=== PATIENT | male | born 1935 | race African-American/Black ===

== ENCOUNTER 2023-06-14 21:48 | Inpatient (IN) | payer OTHER ==
[2023-06-14 22:16] VITALS: BMI 17.7
[2023-06-14] MEDS ORDERED: FUROSEMIDE 40 MG/4 ML INJECTABLE VIAL IVPUSH ONE (23:03)
[2023-06-14] MEDS ORDERED: FUROSEMIDE 40 MG/4 ML INJECTABLE VIAL ONE (23:11)
[2023-06-14 23:50] LABS: BASO % 1.5 % (0-2.0); EOS % 3.1 % (0-4.5); HEMATOCRIT 37.5 % (35.4-49); HEMOGLOBIN 12.5 GM/dL (11.7-16.9); LYMPH % 15.4 % (8-40); MCH 29.7 pg (25.7-33.7); MCHC 33.3 g/dl (32.0-35.9); MEAN CELL VOLUME 88.9 fl (80-96); MEAN PLT VOLUME 8.4 fl (7.5-11.1); PLATELET COUNT 249 10^3/uL (134-434); RBC 4.22 M/mm3 (4.00-5.60); RDW 16.5 % (11.9-15.9); WHITE BLOOD COUNT 8.2 K/mm3 (4.0-10.0)
[2023-06-15 00:08] LABS: POTASSIUM 5.3 mmol/L (3.5-5.1)
[2023-06-15 00:10] LABS: ALBUMIN 3.1 g/dl (3.4-5.0); BLOOD UREA NITROGEN 57.4 mg/dL (7-18); CALCIUM 9.3 mg/dL (8.5-10.1)
[2023-06-15 00:15] LABS: BILIRUBIN,TOTAL 0.7 mg/dL (0.2-1); TOT PROT 6.7 g/dl (6.4-8.2)
[2023-06-15 00:36] LABS: N-TERMINAL BNP 103258.2 pg/ml (5-450)
[2023-06-15 01:29] LABS: EPI CELLS 23 /uL (0-25.1); HYALINE CASTS 6 /uL (0-3.1); URINE APPEARANCE CLEAR; URINE BACTERIA 4 /uL (0-1359); URINE BILIRUBIN NEGATIVE (NEGATIVE); URINE COLOR YELLOW; URINE GLUCOSE (UA) NEGATIVE (NEGATIVE); URINE KETONE NEGATIVE (NEGATIVE); URINE LEUK ESTERASE TRACE (NEGATIVE); URINE NITRITE NEGATIVE (NEGATIVE); URINE PROTEIN 2+ (NEGATIVE); URINE RBC 19 /uL (0-23.9); URINE UROBILINOGEN 0.2 mg/dL (0.2-1.0); URINE WBC 64 /uL (0-25.8)
[2023-06-15 06:37] LABS: EPI CELLS 21 /uL (0-25.1); HYALINE CASTS 7 /uL (0-3.1); URINE APPEARANCE CLEAR; URINE BACTERIA 4 /uL (0-1359); URINE BILIRUBIN NEGATIVE (NEGATIVE); URINE COLOR YELLOW; URINE GLUCOSE (UA) NEGATIVE (NEGATIVE); URINE KETONE NEGATIVE (NEGATIVE); URINE LEUK ESTERASE TRACE (NEGATIVE); URINE NITRITE NEGATIVE (NEGATIVE); URINE PROTEIN 2+ (NEGATIVE); URINE RBC 22 /uL (0-23.9); URINE UROBILINOGEN 0.2 mg/dL (0.2-1.0); URINE WBC 59 /uL (0-25.8)
[2023-06-15] MEDS: INSULIN SLIDING SCALE (NOVOLOG) 1 VIAL SQ SCH ×4 (09:39→22:41)
[2023-06-15] MEDS: APIXABAN 2.5 MG TABLET PO SCH ×2 (10:32→22:42)
[2023-06-15] MEDS: TAMSULOSIN HCL 0.4 MG CAP PO SCH (10:32)
[2023-06-15] MEDS: FUROSEMIDE 40 MG/4 ML INJECTABLE VIAL IVPUSH SCH (10:32)
[2023-06-15] MEDS ORDERED: TAMSULOSIN HCL 0.4 MG CAP ONE (10:41)
[2023-06-15] MEDS ORDERED: APIXABAN 2.5 MG TABLET ONE (10:41)
[2023-06-15] MEDS ORDERED: FUROSEMIDE 40 MG/4 ML INJECTABLE VIAL ONE ×2 (10:41→16:45)
[2023-06-15 13:46] LABS: MCHC 32.5 g/dl (32.0-35.9)
[2023-06-15 13:49] LABS: BASO % 1.2 % (0-2.0); EOS % 2.1 % (0-4.5); HEMATOCRIT 37.9 % (35.4-49); HEMOGLOBIN 12.3 GM/dL (11.7-16.9); LYMPH % 14.1 % (8-40); MCH 29.8 pg (25.7-33.7); MEAN CELL VOLUME 91.6 fl (80-96); MEAN PLT VOLUME 8.7 fl (7.5-11.1); MONO % 7.3 % (3.8-10.2); NEUT % 75.3 % (42.8-82.8); PLATELET COUNT 224 10^3/uL (134-434); RBC 4.14 M/mm3 (4.00-5.60); WHITE BLOOD COUNT 9.3 K/mm3 (4.0-10.0)
[2023-06-15 14:13] LABS: POTASSIUM 5.4 mmol/L (3.5-5.1)
[2023-06-15 14:17] LABS: CALCIUM 9.5 mg/dL (8.5-10.1)
[2023-06-15 14:18] LABS: ALBUMIN 3.2 g/dl (3.4-5.0); BLOOD UREA NITROGEN 59.4 mg/dL (7-18); MAGNESIUM 2.7 mg/dL (1.8-2.4)
[2023-06-15 14:21] LABS: PHOSPHOROUS 4.4 mg/dL (2.5-4.9)
[2023-06-15 14:22] LABS: BILIRUBIN,TOTAL 0.9 mg/dL (0.2-1); CREATININE 2.1 mg/dL (0.55-1.3); TOT PROT 6.8 g/dl (6.4-8.2)
[2023-06-15] MEDS ORDERED: FUROSEMIDE 40 MG/4 ML INJECTABLE VIAL IVPUSH ONE (16:38)
[2023-06-15] MEDS ORDERED: SODIUM ZIRCONIUM CYCLOSILICATE (LOKELMA) 10 GM PACKET ONE (16:45)
[2023-06-15] MEDS ORDERED: SODIUM ZIRCONIUM CYCLOSILICATE (LOKELMA) 10 GM PACKET PO SCH (16:45)
[2023-06-15] MEDS: ATORVASTATIN CA 10 MG TABLET (FP) PO SCH (22:41)
[2023-06-16] MEDS: INSULIN SLIDING SCALE (NOVOLOG) 1 VIAL SQ SCH ×4 (06:09→22:45)
[2023-06-16 07:35] LABS: BASO % 0.8 % (0-2.0); EOS % 5.9 % (0-4.5); HEMATOCRIT 32.5 % (35.4-49); LYMPH % 11.1 % (8-40); MCHC 33.7 g/dl (32.0-35.9); MEAN PLT VOLUME 8.8 fl (7.5-11.1); MONO % 6.7 % (3.8-10.2); NEUT % 75.5 % (42.8-82.8); PLATELET COUNT 200 10^3/uL (134-434); RBC 3.65 M/mm3 (4.00-5.60); RDW 16.6 % (11.9-15.9); WHITE BLOOD COUNT 8.4 K/mm3 (4.0-10.0)
[2023-06-16 07:46] LABS: POTASSIUM 4.2 mmol/L (3.5-5.1)
[2023-06-16 07:52] LABS: BLOOD UREA NITROGEN 65.4 mg/dL (7-18)
[2023-06-16 07:55] LABS: BILIRUBIN,TOTAL 0.8 mg/dL (0.2-1); TOT PROT 6.4 g/dl (6.4-8.2)
[2023-06-16] MEDS: APIXABAN 2.5 MG TABLET PO SCH ×2 (09:36→22:29)
[2023-06-16] MEDS: FUROSEMIDE 40 MG/4 ML INJECTABLE VIAL IVPUSH SCH (09:36)
[2023-06-16] MEDS: TAMSULOSIN HCL 0.4 MG CAP PO SCH (09:36)
[2023-06-16] MEDS ORDERED: INSULIN (NOVOLOG) ASPART 100 UNITS/ML 10ML VIAL ONE (11:38)
[2023-06-16] MEDS: ATORVASTATIN CA 10 MG TABLET (FP) PO SCH (22:29)
[2023-06-17] MEDS: INSULIN SLIDING SCALE (NOVOLOG) 1 VIAL SQ SCH ×4 (06:40→21:21)
[2023-06-17] MEDS: TAMSULOSIN HCL 0.4 MG CAP PO SCH (08:18)
[2023-06-17] MEDS: APIXABAN 2.5 MG TABLET PO SCH ×2 (09:32→21:22)
[2023-06-17] MEDS: FUROSEMIDE 40 MG/4 ML INJECTABLE VIAL IVPUSH SCH (09:32)
[2023-06-17] MEDS: ATORVASTATIN CA 10 MG TABLET (FP) PO SCH (21:22)
[2023-06-18] MEDS: INSULIN SLIDING SCALE (NOVOLOG) 1 VIAL SQ SCH ×4 (06:27→21:19)
[2023-06-18 07:36] LABS: EOS % 5.9 % (0-4.5); HEMATOCRIT 30.8 % (35.4-49); HEMOGLOBIN 10.6 GM/dL (11.7-16.9); LYMPH % 12.8 % (8-40); MCH 30.4 pg (25.7-33.7); MCHC 34.4 g/dl (32.0-35.9); MEAN CELL VOLUME 88.5 fl (80-96); MEAN PLT VOLUME 8.8 fl (7.5-11.1); MONO % 9.1 % (3.8-10.2); NEUT % 71.2 % (42.8-82.8); PLATELET COUNT 182 10^3/uL (134-434); RBC 3.49 M/mm3 (4.00-5.60); RDW 16.6 % (11.9-15.9); WHITE BLOOD COUNT 9.2 K/mm3 (4.0-10.0)
[2023-06-18 07:55] LABS: POTASSIUM 3.7 mmol/L (3.5-5.1)
[2023-06-18 07:57] LABS: BLOOD UREA NITROGEN 41.2 mg/dL (7-18)
[2023-06-18 07:58] LABS: ALBUMIN 2.5 g/dl (3.4-5.0)
[2023-06-18 08:01] LABS: CREATININE 1.4 mg/dL (0.55-1.3)
[2023-06-18 08:02] LABS: BILIRUBIN,TOTAL 0.7 mg/dL (0.2-1); TOT PROT 5.4 g/dl (6.4-8.2)
[2023-06-18] MEDS: FUROSEMIDE 40 MG/4 ML INJECTABLE VIAL IVPUSH SCH (09:36)
[2023-06-18] MEDS: TAMSULOSIN HCL 0.4 MG CAP PO SCH (09:36)
[2023-06-18] MEDS: APIXABAN 2.5 MG TABLET PO SCH ×2 (09:36→21:17)
[2023-06-18] MEDS: metoPROLOL SUCCINATE 25 MG TAB.SR.24H (FP) PO SCH (09:38)
[2023-06-18] MEDS: ATORVASTATIN CA 10 MG TABLET (FP) PO SCH (21:16)
[2023-06-19] MEDS: INSULIN SLIDING SCALE (NOVOLOG) 1 VIAL SQ SCH ×4 (06:38→21:23)
[2023-06-19 07:26] LABS: BASO % 1.1 % (0-2.0); EOS % 5.4 % (0-4.5); HEMOGLOBIN 11.4 GM/dL (11.7-16.9); LYMPH % 13.8 % (8-40); MCH 29.9 pg (25.7-33.7); MCHC 33.6 g/dl (32.0-35.9); MEAN CELL VOLUME 88.9 fl (80-96); MEAN PLT VOLUME 9.1 fl (7.5-11.1); MONO % 8.7 % (3.8-10.2); PLATELET COUNT 193 10^3/uL (134-434); RBC 3.82 M/mm3 (4.00-5.60); RDW 16.9 % (11.9-15.9); WHITE BLOOD COUNT 9.2 K/mm3 (4.0-10.0)
[2023-06-19 07:46] LABS: POTASSIUM 3.8 mmol/L (3.5-5.1)
[2023-06-19 07:52] LABS: CALCIUM 8.3 mg/dL (8.5-10.1)
[2023-06-19 07:53] LABS: ALBUMIN 2.7 g/dl (3.4-5.0); BLOOD UREA NITROGEN 39.2 mg/dL (7-18)
[2023-06-19 07:56] LABS: CREATININE 1.2 mg/dL (0.55-1.3)
[2023-06-19 07:58] LABS: BILIRUBIN,TOTAL 0.8 mg/dL (0.2-1); TOT PROT 5.8 g/dl (6.4-8.2)
[2023-06-19] MEDS: metoPROLOL SUCCINATE 25 MG TAB.SR.24H (FP) PO SCH (09:29)
[2023-06-19] MEDS: FUROSEMIDE 40 MG/4 ML INJECTABLE VIAL IVPUSH SCH (09:29)
[2023-06-19] MEDS: APIXABAN 2.5 MG TABLET PO SCH ×2 (09:29→21:23)
[2023-06-19] MEDS: TAMSULOSIN HCL 0.4 MG CAP PO SCH (09:29)
[2023-06-19] MEDS ORDERED: FUROSEMIDE 40 MG/4 ML INJECTABLE VIAL IVPUSH ONE (14:10)
[2023-06-19] MEDS ORDERED: INSULIN (NOVOLOG) ASPART 100 UNITS/ML 10ML VIAL ONE (21:11)
[2023-06-19] MEDS: ATORVASTATIN CA 10 MG TABLET (FP) PO SCH (21:23)
[2023-06-20] MEDS: INSULIN SLIDING SCALE (NOVOLOG) 1 VIAL SQ SCH ×4 (06:31→21:54)
[2023-06-20] MEDS: TAMSULOSIN HCL 0.4 MG CAP PO SCH (08:50)
[2023-06-20] MEDS: APIXABAN 2.5 MG TABLET PO SCH ×2 (09:21→21:46)
[2023-06-20] MEDS: FUROSEMIDE 40 MG/4 ML INJECTABLE VIAL IVPUSH SCH (09:21)
[2023-06-20] MEDS ORDERED: FUROSEMIDE 40 MG/4 ML INJECTABLE VIAL IVPUSH ONE (12:00)
[2023-06-20 13:25] LABS: POTASSIUM 3.6 mmol/L (3.5-5.1)
[2023-06-20 13:28] LABS: BLOOD UREA NITROGEN 38.2 mg/dL (7-18); CALCIUM 8.5 mg/dL (8.5-10.1); MAGNESIUM 1.9 mg/dL (1.8-2.4)
[2023-06-20 13:32] LABS: CREATININE 1.2 mg/dL (0.55-1.3); PHOSPHOROUS 2.4 mg/dL (2.5-4.9)
[2023-06-20] MEDS ORDERED: POTASSIUM PHOSPHATE 15 MM in SODIUM CHLORIDE 250 ML IVPB ONE (13:41)
[2023-06-20] MEDS: ATORVASTATIN CA 10 MG TABLET (FP) PO SCH (21:46)
[2023-06-20] MEDS: SACUBITRIL/VALSARTAN 24 MG-26 MG TABLET PO SCH (21:46)
[2023-06-21] MEDS: INSULIN SLIDING SCALE (NOVOLOG) 1 VIAL SQ SCH ×4 (06:02→22:38)
[2023-06-21] MEDS: TAMSULOSIN HCL 0.4 MG CAP PO SCH (09:14)
[2023-06-21] MEDS: SACUBITRIL/VALSARTAN 24 MG-26 MG TABLET PO SCH ×2 (09:15→22:02)
[2023-06-21] MEDS: APIXABAN 2.5 MG TABLET PO SCH ×2 (09:15→22:02)
[2023-06-21] MEDS: FUROSEMIDE 40 MG/4 ML INJECTABLE VIAL IVPUSH SCH (09:15)
[2023-06-21] MEDS ORDERED: INSULIN (NOVOLOG) ASPART 100 UNITS/ML 10ML VIAL ONE ×2 (11:05→15:49)
[2023-06-21 15:00] VITALS: RESP 18
[2023-06-21] MEDS: ATORVASTATIN CA 10 MG TABLET (FP) PO SCH (22:02)
[2023-06-22] MEDS: INSULIN SLIDING SCALE (NOVOLOG) 1 VIAL SQ SCH ×4 (06:01→22:26)
[2023-06-22] MEDS: APIXABAN 2.5 MG TABLET PO SCH ×2 (09:25→22:18)
[2023-06-22] MEDS: FUROSEMIDE 40 MG/4 ML INJECTABLE VIAL IVPUSH SCH (09:25)
[2023-06-22] MEDS: TAMSULOSIN HCL 0.4 MG CAP PO SCH (09:25)
[2023-06-22] MEDS: SACUBITRIL/VALSARTAN 24 MG-26 MG TABLET PO SCH ×2 (09:25→22:18)
[2023-06-22 10:09] LABS: BASO % 0.9 % (0-2.0); EOS % 4.8 % (0-4.5); HEMATOCRIT 35.4 % (35.4-49); HEMOGLOBIN 11.9 GM/dL (11.7-16.9); LYMPH % 9.1 % (8-40); MCH 30.3 pg (25.7-33.7); MCHC 33.7 g/dl (32.0-35.9); MEAN CELL VOLUME 89.8 fl (80-96); MEAN PLT VOLUME 9.2 fl (7.5-11.1); MONO % 7.9 % (3.8-10.2); NEUT % 77.3 % (42.8-82.8); PLATELET COUNT 185 10^3/uL (134-434); RBC 3.94 M/mm3 (4.00-5.60); WHITE BLOOD COUNT 9.1 K/mm3 (4.0-10.0)
[2023-06-22 10:34] LABS: POTASSIUM 3.8 mmol/L (3.5-5.1)
[2023-06-22 10:36] LABS: BLOOD UREA NITROGEN 49.6 mg/dL (7-18); CALCIUM 8.3 mg/dL (8.5-10.1)
[2023-06-22 10:38] LABS: ALBUMIN 2.6 g/dl (3.4-5.0); MAGNESIUM 1.8 mg/dL (1.8-2.4)
[2023-06-22 10:41] LABS: BILIRUBIN,TOTAL 0.6 mg/dL (0.2-1); CREATININE 1.5 mg/dL (0.55-1.3); PHOSPHOROUS 2.6 mg/dL (2.5-4.9); TOT PROT 5.6 g/dl (6.4-8.2)
[2023-06-22] MEDS: ASPIRIN 81 MG CHEWABLE TABLETS PO SCH (12:07)
[2023-06-22] MEDS: ATORVASTATIN CA 10 MG TABLET (FP) PO SCH (22:18)
[2023-06-23] MEDS: INSULIN SLIDING SCALE (NOVOLOG) 1 VIAL SQ SCH (06:21)
[2023-06-23 06:46] VITALS: BP 117/48; PULSE 69; TEMP 99.2
[2023-06-23] MEDS: FUROSEMIDE 40 MG/4 ML INJECTABLE VIAL IVPUSH SCH (10:29)
[2023-06-23] MEDS: ASPIRIN 81 MG CHEWABLE TABLETS PO SCH (10:29)
[2023-06-23] MEDS: TAMSULOSIN HCL 0.4 MG CAP PO SCH (10:29)
[2023-06-23] MEDS: APIXABAN 2.5 MG TABLET PO SCH (10:30)
[2023-06-23] MEDS: SACUBITRIL/VALSARTAN 24 MG-26 MG TABLET PO SCH (10:30)
== END 2023-06-23 12:21 | disposition home or self-care (01) | DRG 291 ==
LOC: JER 21:48 → JERBED 06-15 00:09 → J4W 06-15 19:32 → J5S 06-21 20:40
PROVIDERS: ADMIT Internal Medicine
DX: I13.0 Hypertensive heart and chronic kidney disease with heart failure and stage 1 through stage 4 chronic kidney disease, or unspecified chronic kidney disease (principal); I50.23 Acute on chronic systolic (congestive) heart failure; J96.01 Acute respiratory failure with hypoxia; N17.9 Acute kidney failure, unspecified; I24.8 Other forms of acute ischemic heart disease; N18.9 Chronic kidney disease, unspecified; I35.0 Nonrheumatic aortic (valve) stenosis; I71.40 Abdominal aortic aneurysm, without rupture, unspecified; I48.91 Unspecified atrial fibrillation; Z79.01 Long term (current) use of anticoagulants; N40.0 Benign prostatic hyperplasia without lower urinary tract symptoms; I27.20 Pulmonary hypertension, unspecified; I48.0 Paroxysmal atrial fibrillation; I71.21 Aneurysm of the ascending aorta, without rupture; N28.1 Cyst of kidney, acquired; E87.6 Hypokalemia
CPT/HCPCS: 36415; 71045-TC-FY; 76775-TC; 76856-TC; 80048; 80053; 81003; 82550; 82570; 82962; 83036; 83735; 83880; 83935; 84100; 84300; 84484; 85025; 85045; 87086; 93005; 93010; 94761; 97116-GP; 99285-25

== ENCOUNTER 2023-07-18 08:49 | Inpatient (IN) | payer OTHER ==
[2023-07-18 10:28] LABS: BASO % 1.3 % (0-2.0); HEMATOCRIT 36.5 % (35.4-49); MCH 29.7 pg (25.7-33.7); MCHC 32.8 g/dl (32.0-35.9); MEAN CELL VOLUME 90.8 fl (80-96); MEAN PLT VOLUME 9.1 fl (7.5-11.1); MONO % 5.5 % (3.8-10.2); NEUT % 76.2 % (42.8-82.8); PLATELET COUNT 247 10^3/uL (134-434); RBC 4.03 M/mm3 (4.00-5.60); RDW 16.7 % (11.9-15.9); WHITE BLOOD COUNT 7.5 K/mm3 (4.0-10.0)
[2023-07-18 10:45] LABS: POTASSIUM 4.7 mmol/L (3.5-5.1)
[2023-07-18 10:48] LABS: ALBUMIN 3.3 g/dl (3.4-5.0); BLOOD UREA NITROGEN 75.9 mg/dL (7-18); CALCIUM 9.1 mg/dL (8.5-10.1); MAGNESIUM 2.5 mg/dL (1.8-2.4)
[2023-07-18 10:51] LABS: CREATININE 2.6 mg/dL (0.55-1.3)
[2023-07-18 10:52] LABS: BILIRUBIN,TOTAL 0.8 mg/dL (0.2-1); TOT PROT 7.3 g/dl (6.4-8.2)
[2023-07-18 12:24] LABS: ACTIVATED PTT 35.9 SECONDS (25.2-36.5); INR 1.04 (0.83-1.09); PROTHROMBIN TIME (PATIENT) 12.1 SEC (9.7-13.0)
[2023-07-18] MEDS ORDERED: APIXABAN 2.5 MG TABLET ONE ×2 (13:49→22:48)
[2023-07-18] MEDS ORDERED: FUROSEMIDE 40 MG TABLET (FP) ONE (13:49)
[2023-07-18] MEDS ORDERED: ASPIRIN 81 MG CHEWABLE TABLETS ONE (13:49)
[2023-07-18] MEDS: APIXABAN 2.5 MG TABLET PO SCH ×2 (13:54→22:53)
[2023-07-18] MEDS: FUROSEMIDE 40 MG TABLET (FP) PO SCH (13:54)
[2023-07-18] MEDS: ASPIRIN 81 MG CHEWABLE TABLETS PO SCH (13:54)
[2023-07-18] MEDS ORDERED: TAMSULOSIN HCL 0.4 MG CAP PO SCH (22:00)
[2023-07-18] MEDS ORDERED: ATORVASTATIN CA 20 MG TABLET (FP) ONE (22:48)
[2023-07-18] MEDS ORDERED: TAMSULOSIN HCL 0.4 MG CAP ONE (22:48)
[2023-07-18] MEDS: ATORVASTATIN CA 10 MG TABLET (FP) PO SCH (22:53)
[2023-07-19] MEDS ORDERED: MELATONIN 5 MG TABLETS PO SCH ×2 (02:47→22:00)
[2023-07-19] MEDS ORDERED: MELATONIN 5 MG TABLETS ONE (02:52)
[2023-07-19] MEDS: MELATONIN 5 MG TABLETS PO SCH ×2 (02:54→21:41)
[2023-07-19 08:21] LABS: BASO % 1.1 % (0-2.0); EOS % 5.9 % (0-4.5); HEMATOCRIT 27.3 % (35.4-49); HEMOGLOBIN 9.3 GM/dL (11.7-16.9); LYMPH % 13.5 % (8-40); MCH 30.5 pg (25.7-33.7); MEAN CELL VOLUME 89.7 fl (80-96); MEAN PLT VOLUME 9.4 fl (7.5-11.1); MONO % 7.9 % (3.8-10.2); NEUT % 71.6 % (42.8-82.8); PLATELET COUNT 201 10^3/uL (134-434); RBC 3.04 M/mm3 (4.00-5.60); RDW 16.6 % (11.9-15.9); WHITE BLOOD COUNT 8.7 K/mm3 (4.0-10.0)
[2023-07-19 08:22] LABS: POTASSIUM 4.1 mmol/L (3.5-5.1)
[2023-07-19 08:30] LABS: CALCIUM 8.5 mg/dL (8.5-10.1)
[2023-07-19 08:31] LABS: BLOOD UREA NITROGEN 74.6 mg/dL (7-18); MAGNESIUM 2.3 mg/dL (1.8-2.4)
[2023-07-19 08:33] LABS: CREATININE 2.6 mg/dL (0.55-1.3)
[2023-07-19 08:34] LABS: PHOSPHOROUS 3.7 mg/dL (2.5-4.9)
[2023-07-19 08:35] LABS: BILIRUBIN,TOTAL 0.8 mg/dL (0.2-1); TOT PROT 5.6 g/dl (6.4-8.2)
[2023-07-19 08:37] LABS: ALBUMIN 2.5 g/dl (3.4-5.0)
[2023-07-19] MEDS: APIXABAN 2.5 MG TABLET PO SCH ×2 (09:20→21:41)
[2023-07-19] MEDS: TAMSULOSIN HCL 0.4 MG CAP PO SCH (09:20)
[2023-07-19] MEDS: FUROSEMIDE 40 MG TABLET (FP) PO SCH (09:20)
[2023-07-19] MEDS: ASPIRIN 81 MG CHEWABLE TABLETS PO SCH (09:20)
[2023-07-19] MEDS: FLUTICASONE/UMECLIDIN/VILANTER(200-62.5-25 TRELEGY ELLIPTA) INAHLER IH SCH (17:30)
[2023-07-19] MEDS: ATORVASTATIN CA 10 MG TABLET (FP) PO SCH (21:41)
[2023-07-20] MEDS: TAMSULOSIN HCL 0.4 MG CAP PO SCH (08:45)
[2023-07-20] MEDS: FUROSEMIDE 40 MG TABLET (FP) PO SCH (10:42)
[2023-07-20] MEDS: APIXABAN 2.5 MG TABLET PO SCH ×2 (10:42→22:28)
[2023-07-20] MEDS: ASPIRIN 81 MG CHEWABLE TABLETS PO SCH (10:42)
[2023-07-20 12:07] LABS: BASO % 0.7 % (0-2.0); EOS % 5.4 % (0-4.5); HEMATOCRIT 30.6 % (35.4-49); HEMOGLOBIN 10.1 GM/dL (11.7-16.9); LYMPH % 10.7 % (8-40); MCH 29.9 pg (25.7-33.7); MCHC 32.8 g/dl (32.0-35.9); MEAN CELL VOLUME 91.2 fl (80-96); MEAN PLT VOLUME 8.8 fl (7.5-11.1); MONO % 7.7 % (3.8-10.2); NEUT % 75.5 % (42.8-82.8); PLATELET COUNT 176 10^3/uL (134-434); RBC 3.36 M/mm3 (4.00-5.60); RDW 16.2 % (11.9-15.9); WHITE BLOOD COUNT 9.2 K/mm3 (4.0-10.0)
[2023-07-20 13:04] LABS: POTASSIUM 4.2 mmol/L (3.5-5.1)
[2023-07-20 13:05] LABS: CALCIUM 8.8 mg/dL (8.5-10.1)
[2023-07-20 13:06] LABS: ALBUMIN 2.7 g/dl (3.4-5.0); BLOOD UREA NITROGEN 71.4 mg/dL (7-18); MAGNESIUM 2.3 mg/dL (1.8-2.4)
[2023-07-20 13:09] LABS: CREATININE 2.2 mg/dL (0.55-1.3); PHOSPHOROUS 3.6 mg/dL (2.5-4.9)
[2023-07-20 13:11] LABS: BILIRUBIN,TOTAL 0.6 mg/dL (0.2-1); TOT PROT 6.1 g/dl (6.4-8.2)
[2023-07-20] MEDS: FLUTICASONE/UMECLIDIN/VILANTER(200-62.5-25 TRELEGY ELLIPTA) INAHLER IH SCH (17:39)
[2023-07-20 21:43] VITALS: BMI 20.3
[2023-07-20] MEDS: MELATONIN 5 MG TABLETS PO SCH (22:28)
[2023-07-20] MEDS: ATORVASTATIN CA 10 MG TABLET (FP) PO SCH (22:28)
[2023-07-21] MEDS: ALBUTEROL SO4 HFA INHALER IH PRN ×3 (03:06→21:08)
[2023-07-21] MEDS: APIXABAN 2.5 MG TABLET PO SCH ×2 (09:21→21:07)
[2023-07-21] MEDS: FLUTICASONE/UMECLIDIN/VILANTER(200-62.5-25 TRELEGY ELLIPTA) INAHLER IH SCH (09:21)
[2023-07-21] MEDS: ASPIRIN 81 MG CHEWABLE TABLETS PO SCH (09:21)
[2023-07-21] MEDS: TAMSULOSIN HCL 0.4 MG CAP PO SCH (09:21)
[2023-07-21] MEDS: FUROSEMIDE 40 MG TABLET (FP) PO SCH (09:21)
[2023-07-21 10:09] LABS: BASO % 0.6 % (0-2.0); EOS % 1.9 % (0-4.5); HEMATOCRIT 30.4 % (35.4-49); HEMOGLOBIN 10.5 GM/dL (11.7-16.9); LYMPH % 9.1 % (8-40); MCHC 34.6 g/dl (32.0-35.9); MEAN CELL VOLUME 89.6 fl (80-96); MEAN PLT VOLUME 9.1 fl (7.5-11.1); MONO % 6.8 % (3.8-10.2); NEUT % 81.6 % (42.8-82.8); PLATELET COUNT 160 10^3/uL (134-434); RBC 3.39 M/mm3 (4.00-5.60); RDW 16.2 % (11.9-15.9); WHITE BLOOD COUNT 10.7 K/mm3 (4.0-10.0)
[2023-07-21 10:20] LABS: POTASSIUM 4.2 mmol/L (3.5-5.1)
[2023-07-21 10:23] LABS: ALBUMIN 2.8 g/dl (3.4-5.0); CALCIUM 9.3 mg/dL (8.5-10.1); MAGNESIUM 2.1 mg/dL (1.8-2.4)
[2023-07-21 10:26] LABS: PHOSPHOROUS 3.6 mg/dL (2.5-4.9)
[2023-07-21 10:27] LABS: CREATININE 2.2 mg/dL (0.55-1.3)
[2023-07-21 10:28] LABS: BILIRUBIN,TOTAL 0.7 mg/dL (0.2-1); TOT PROT 6.1 g/dl (6.4-8.2)
[2023-07-21] MEDS: ATORVASTATIN CA 10 MG TABLET (FP) PO SCH (21:07)
[2023-07-21] MEDS: MELATONIN 5 MG TABLETS PO SCH (21:07)
[2023-07-22] MEDS ORDERED: FUROSEMIDE 40 MG/4 ML INJECTABLE VIAL IVPUSH ONE (06:30)
[2023-07-22] MEDS: FUROSEMIDE 40 MG/4 ML INJECTABLE VIAL IVPUSH ONE ×2 (06:34→06:35)
[2023-07-22 08:55] LABS: BASO % 0.9 % (0-2.0); EOS % 1.1 % (0-4.5); HEMATOCRIT 31.9 % (35.4-49); HEMOGLOBIN 10.4 GM/dL (11.7-16.9); LYMPH % 7.5 % (8-40); MCH 29.9 pg (25.7-33.7); MCHC 32.6 g/dl (32.0-35.9); MEAN CELL VOLUME 91.6 fl (80-96); MEAN PLT VOLUME 9.4 fl (7.5-11.1); NEUT % 84.5 % (42.8-82.8); PLATELET COUNT 175 10^3/uL (134-434); RBC 3.48 M/mm3 (4.00-5.60); RDW 16.5 % (11.9-15.9); WHITE BLOOD COUNT 10.9 K/mm3 (4.0-10.0)
[2023-07-22 09:07] LABS: POTASSIUM 4.2 mmol/L (3.5-5.1)
[2023-07-22 09:13] LABS: CALCIUM 9.7 mg/dL (8.5-10.1)
[2023-07-22 09:14] LABS: BLOOD UREA NITROGEN 66.9 mg/dL (7-18)
[2023-07-22 09:17] LABS: CREATININE 2.2 mg/dL (0.55-1.3)
[2023-07-22] MEDS: APIXABAN 2.5 MG TABLET PO SCH ×2 (10:30→21:21)
[2023-07-22] MEDS: ASPIRIN 81 MG CHEWABLE TABLETS PO SCH (10:45)
[2023-07-22] MEDS: TAMSULOSIN HCL 0.4 MG CAP PO SCH (10:45)
[2023-07-22] MEDS: FUROSEMIDE 40 MG TABLET (FP) PO SCH (10:45)
[2023-07-22] MEDS: FLUTICASONE/UMECLIDIN/VILANTER(200-62.5-25 TRELEGY ELLIPTA) INAHLER IH SCH (10:46)
[2023-07-22 15:08] VITALS: PULSE 84; RESP 18
[2023-07-22 18:32] VITALS: TEMP 97.4
[2023-07-22] MEDS: MELATONIN 5 MG TABLETS PO SCH (21:20)
[2023-07-22] MEDS: ATORVASTATIN CA 10 MG TABLET (FP) PO SCH (21:26)
[2023-07-22 21:28] VITALS: BP 135/60
== END 2023-07-23 00:38 | disposition expired | DRG 291 ==
LOC: JER 08:49 → JERBED 11:38 → J5S 07-19 11:18
PROVIDERS: ADMIT Internal Medicine; ATTEND Internal Medicine
PROC: 0BH17EZ Insertion of Endotracheal Airway into Trachea, Via Natural or Artificial Opening (ICD-10-PCS; principal; 2023-07-23)
PROC: 5A12012 Performance of Cardiac Output, Single, Manual (ICD-10-PCS; 2023-07-23)
DX: I13.0 Hypertensive heart and chronic kidney disease with heart failure and stage 1 through stage 4 chronic kidney disease, or unspecified chronic kidney disease (principal); I50.23 Acute on chronic systolic (congestive) heart failure; J96.21 Acute and chronic respiratory failure with hypoxia; N17.9 Acute kidney failure, unspecified; I24.89 Other forms of acute ischemic heart disease; J84.9 Interstitial pulmonary disease, unspecified; R64 Cachexia; I35.0 Nonrheumatic aortic (valve) stenosis; I48.91 Unspecified atrial fibrillation; I11.0 Hypertensive heart disease with heart failure; I27.20 Pulmonary hypertension, unspecified; I71.21 Aneurysm of the ascending aorta, without rupture; E78.5 Hyperlipidemia, unspecified; N40.0 Benign prostatic hyperplasia without lower urinary tract symptoms; J84.10 Pulmonary fibrosis, unspecified; K80.20 Calculus of gallbladder without cholecystitis without obstruction; E11.22 Type 2 diabetes mellitus with diabetic chronic kidney disease; N18.9 Chronic kidney disease, unspecified; R54 Age-related physical debility; R91.8 Other nonspecific abnormal finding of lung field; N28.1 Cyst of kidney, acquired; I46.9 Cardiac arrest, cause unspecified; Z99.81 Dependence on supplemental oxygen; Z87.891 Personal history of nicotine dependence
CPT/HCPCS: 0241U-QW; 36415; 71045-TC-FY; 76775-TC; 80048; 80053; 83735; 83880; 84100; 84484; 85025; 85610; 85730; 86850; 86900; 86901; 93005; 93010; 99285-25